=== PATIENT | female | born 1975 | race Caucasian/White ===

== ENCOUNTER 2023-09-11 19:16 | Emergency (ER) | payer BC, OTHER ==
[2023-09-11] MEDS: Doxycycline Monohydrate 100 MG Cap PO ONE (20:29)
== END 2023-09-11 20:33 | disposition home or self-care (01) ==
LOC: JD.ED 19:16
DX: S01.85XD Open bite of other part of head, subsequent encounter (principal); Z88.5 Allergy status to narcotic agent; Z88.1 Allergy status to other antibiotic agents; W55.03XD Scratched by cat, subsequent encounter
CPT/HCPCS: 99283; A9270; 99282